=== PATIENT | female | born 1995 | race Two or more races ===

== ENCOUNTER 2022-03-09 00:36 | Emergency (ER) | payer SELFPAY ==
[~2022-03-09] VITALS: Ht 154.9 cm; Wt 69.5 kg
[2022-03-09 01:40] VITALS: BP 118/76
[2022-03-09] MEDS ORDERED: BENZOCAINE (DENTAL) 20 % SPRAY 60ML MT ONE (03:15)
[2022-03-09] MEDS ORDERED: IBUP800T27 PO (03:18)
[2022-03-09] MEDS ORDERED: AMOX-277 PO (03:18)
== END 2022-03-09 03:54 | disposition home or self-care (01) ==
LOC: ER 00:36
DX: K04.7 Periapical abscess without sinus (principal); Z79.1 Long term (current) use of non-steroidal anti-inflammatories (NSAID); Z79.2 Long term (current) use of antibiotics